=== PATIENT | female | born 1955 | race Caucasian/White ===

== ENCOUNTER 2016-05-21 08:41 | Emergency (ER) | END 2016-05-21 20:37 | disposition home or self-care (01) | DX: K80.70 Calculus of gallbladder and bile duct without cholecystitis without obstruction (principal); H60.312 Diffuse otitis externa, left ear; I10 Essential (primary) hypertension; F17.210 Nicotine dependence, cigarettes, uncomplicated | CPT/HCPCS: 36415; 74176; 76705; 80053; 81001; 81003; 83690; 85025; 96374; 96375; J0295; J2270; J2405; J7030; Z7502; Z7610 ==